=== PATIENT | male | born 1980 ===

== ENCOUNTER 2016-12-16 07:17 | Day surgery (SDC) | payer MEDICAID ==
[2016-12-16 08:08] VITALS: BMI 29.4
[2016-12-16] MEDS ORDERED: Propofol 10 mg/ml Inj (20 ML) ONE (11:12)
[2016-12-16] MEDS ORDERED: Lactated Ringer's 500 ML IV SCH (11:30)
[2016-12-16 13:03] VITALS: TEMP 97
[2016-12-16 13:05] VITALS: PULSE 60; RESP 20; O2SAT 100
[2016-12-16 13:20] VITALS: BP 134/70
== END 2016-12-16 12:45 | disposition home or self-care (01) ==
LOC: C.ENDO 07:17
PROVIDERS: ATTEND Internal Medicine
DX: K50.919 Crohn's disease, unspecified, with unspecified complications (principal); K50.10 Crohn's disease of large intestine without complications
CPT/HCPCS: 45380; 88305; J2704; J3010; J7120